=== PATIENT | female | born 1995 | race Caucasian/White ===

== ENCOUNTER 2019-05-13 23:08 | Inpatient (IN) | payer BC ==
--- NOTE | 2019-05-13 23:36 | ED ---
Psychiatric Complaint - HPI Summary HPI Summary: Patient is a 23 y/o F presenting to [facility] with cc of SI with overdose and self- inflicted lacerations today. She reports feeling suicidal today, as she has been self-inflicting lacerations to the L anterior thigh and left side of the face using an ex-acto knife. She also has taken a variety of medications tonight , including Benadryl 50mg, Trazodone 5mg, and Noctamid 6mg. She had four pills of Tylenol this morning but none tonight. She had four glasses of wine with dinner. She has a history of opiate (heroin) use that she has been dealing with for the last 5 years, but she denies any IV drug use. History of anxiety and depression managed with medications. No previous admissions for psychiatric reasons. She does not have any other medical complaints at this time. No other PMHx. Nonsmoker, occasional alcohol use. Medications reviewed. Allergies noted. - History Of Current Complaint Hx Obtained From: Patient Onset/Duration: Still Present Timing: Constant Severity Initially: Mild Severity Currently: Moderate Character: Depressed Aggravating Factor(s): Recent Stress Alleviating Factor(s): Nothing Related History: Positive For: Prior Psychiatric Issues - anxiety, depression Has Suicidal: Reports: Thoughts, With A Plan, Demonstrates Gesture - took mx pills, self-inflicted cuts Ingestion History: Type/Name Of Drug - Benadryl 50mg, Trazodone 5mg, and Noctamid 6mg - Allergies/Home Medications Allergies/Adverse Reactions: Allergies Allergy/AdvReac Type Severity Reaction Status Date / Time No Known Allergies Allergy Verified 05/13/19 23:15 Home Medications: Home Medications Fluoxetine HCl [Prozac] 20 mg PO DAILY 05/13/19 [History Confirmed 05/13/19] Trazodone HCl 50 mg PO QPM PRN 05/13/19 [History Confirmed 05/13/19] clonazePAM [Clonazepam] 0.5 mg PO DAILY PRN 05/13/19 [History Confirmed 05/13/19 ] PMH/Surg Hx/FS Hx/Imm Hx Endocrine/Hematology History: Denies: Hx Diabetes Cardiovascular History: Denies: Hx Hypertension, Hx Pacemaker/ICD History: Denies: Hx Renal Disease Sensory History: Denies: Hx Hearing Aid Psychiatric History: Reports: Hx Anxiety, Hx Depression Denies: Hx Panic Disorder - Surgical History Surgical History: None Surgery Procedure, Year, and Place: none Infectious Disease History: No Infectious Disease History: Denies: Traveled Outside the [place] in Last 30 Days - Family History Known Family History: Negative: Renal Disease - Social History Alcohol Use: None Hx Substance Use: Yes Substance Use Type: Reports: Heroin, Other - opioids Hx Tobacco Use: No Smoking Status (MU): Never Smoked Tobacco Review of Systems Positive: Other - self-inflicted lacerations to left side of face and left thigh All Other Systems Reviewed And Are Negative: Yes Physical Exam - Summary Physical Exam Summary: Constitutional: Well-developed, Well-nourished, Alert. (-) Distressed Skin: Self-inflicted abrasions on the L face and L thigh; Warm, Dry HENT: Normocephalic; Atraumatic Eyes: Conjunctiva normal Neck: Musculoskeletal ROM normal neck. (-) JVD, (-) Stridor, (-) Nuchal rigidity Cardio: Rhythm regular, rate normal, Heart sounds normal; Intact distal pulses; Radial pulses are 2+ and symmetric. (-) Murmur Pulmonary/Chest wall: Effort normal. (-) Respiratory distress, (-) Wheezes, (-) Rales Abd: Soft, (-) tenderness, (-) Distension, (-) Guarding, (-) Rebound Musculoskeletal: (-) Edema Lymph: (-) Cervical adenopathy Neuro: Alert, Oriented x3 Psych: Tearful Triage Information Reviewed: Yes Vital Signs On Initial Exam: Initial Vitals Temp Pulse Resp BP Pulse Ox 100.2 F 83 16 139/96 98 05/13/19 23:10 05/13/19 23:10 05/13/19 23:10 05/13/19 23:10 05/13/19 23:10 Vital Signs Reviewed: Yes Procedures - Sedation Patient Received Moderate/Deep Sedation with Procedure: No Diagnostics - Vital Signs Vital Signs Temp Pulse Resp BP Pulse Ox 05/13/19 23:10 100.2 F 83 16 139/96 98 - Laboratory Result Diagrams: 05/13/19 23:31 05/13/19 23:31 Lab Statement: Any lab studies that have been ordered have been reviewed, and results considered in the medical decision making process. - EKG 2357 Cardiac Rate: NL - 66 BPM EKG Rhythm: Sinus Rhythm Summary of EKG Findings: An EKG at 2357 reveals normal sinus rhythm at 66 BPM, nml QTc, nml QRS. No STEMI. ED physician has reviewed and interpreted this EKG. Re-Evaluation - Re-Evaluation First Eval Re-Evaluation Time: 00:00 Comment: Patient medically clear for MHE. Second Eval Re-Evaluation Time: 03:30 Comment: Notified by patient's father that she took 20 tabs of Noctamid instead of one tab like she said earlier. D/w Posion Control regarding father's concern for ingestion. Patient arousable and cooperative. Third Eval Re-Evaluation Time: 06:30 Comment: pending patient arousal prior to MHE, she is sleepy at this time, per psychiatric team Course/Dx - Differential Dx/Clinical Impression Provider Diagnosis: Depression - Physician Notifications Discussed Care Of Patient With: Posion Control Instructed by Provider To: Other - D/w Poison Control secondary to father's concern for ingestion of more medication than she lead on initially Discharge ED - Sign-Out/Discharge Documenting (check all that apply): Sign-Out Patient Signing out patient TO: Mraii Miranda - Patient is a sign-out to Dr. Marii Miranda MD, at change of shift at 0700 on 05/14/19, pending MHE and disposition. - Discharge Plan Condition: Stable Referrals: Sussy Villagomez, CARRY IN WORKER [Nurse Practitioner] - - Attestation Statements Document Initiated by Scribe: Yes Documenting Scribe: Tejal Yen Provider For Whom Scribe is Documenting (Include Credential): Dr. Krissy Elliott MD Scribe Attestation: Tejal Peña, scribed for Dr. Krissy Elliott MD on 05/14/19 at 0627. Status of Scribe Document: Ready
[2019-05-13 23:41] LABS: ABS Eosinophils 0.2 10^3/ul (0-0.6); ABS Lymphocytes 1.6 10^3/ul (1.0-4.8); ABS Monocytes 0.7 10^3/ul (0-0.8); ABS Neutrophils 4.7 10^3/ul (1.5-7.7); Eosinophil % 2.2 %; Hematocrit 38 % (35-47); Lymphocyte % 22.1 %; Mean Corpuscular HGB Conc 34 g/dL (31-36); Mean Corpuscular Hemoglobin 30 pg (27-31); Mean Corpuscular Volume 86 fL (80-97); Mean Platelet Volume 7.1 fL (7.4-10.4); Platelet Count 237 10^3/uL (150-450); Red Blood Count 4.38 10^6 /uL (3.70-4.87); Red Cell Distribution Width 13 % (10-15); White Blood Count 7.1 10^3/uL (3.5-10.8)
[2019-05-13] MEDS ORDERED: Tetan/Diph/Pertus SYR(Tdap)* 0.5 ML SYR(BOOSTRIX) use SYR contains LATEX IM ONE (23:43)
[2019-05-14] LABS: ALT 18 U/L (7-52); AST 21 U/L (13-39); Albumin 4.8 g/dL (3.2-5.2); Albumin/Globulin Ratio 1.9 (1-3); Alkaline Phosphatase 42 U/L (34-104); Anion Gap 9 mmol/L (2-11); BUN/Creatinine Ratio 29.9 (8-20); Blood Urea Nitrogen 20 mg/dL (6-24); CO2 Carbon Dioxide 23 mmol/L (22-32); Calcium 9.5 mg/dL (8.6-10.3); Chloride 107 mmol/L (101-111); EGFR African American 134.4 (>60); EGFR Non-African American 111.1 (>60); Globulin 2.5 g/dL (2-4); Glucose 90 mg/dL (70-100); Potassium 3.8 mmol/L (3.5-5.0); Sodium 139 mmol/L (135-145); Total Protein 7.3 g/dL (6.4-8.9)
[2019-05-14 00:05] LABS: HCG Pregnancy < 0.60 mIU/mL
[2019-05-14 00:28] LABS: Acetaminophen < 15 mcg/mL; Alcohol < 10 mg/dL (<10); Salicylate < 2.50 mg/dL (<30)
[2019-05-14 02:37] LABS: Urine Appearance Clear; Urine Bilirubin Negative (Negative); Urine Blood 2+ (Negative); Urine Color Yellow; Urine Glucose Negative (Negative); Urine Ketones 1+ (Negative); Urine Nitrite Negative (Negative); Urine Protein Negative (Negative); Urine Specific Gravity 1.035 (1.010-1.030); Urine Urobilinogen Negative (Negative)
[2019-05-14 02:44] LABS: Urine Bacteria Absent (Absent); Urine Red Blood Cell 1+(3-5/hpf) (Absent); Urine Squamous Epithelial Cell Present (Absent); Urine White Blood Cell Trace(0-5/hpf) (Absent)
[2019-05-14 02:53] LABS: Urine Benzodiazepine Screen None Detected (None Detect); Urine Opiates Screen None Detected (None Detect)
--- NOTE | 2019-05-14 07:17 | ED ---
Progress - Progress Note Progress Note: Patient is a sign out at 07:00 on 05/14/[address] Krissy Elliott MD to Dr. Marii Miranda MD at shift change, pending mental health hold and disposition. At 07:32, timber management professor reports the patient is sleeping and pending collateral from her . At 11:52, timber management professor reports that the patients case was reviewed by Dr. Macario Quiroz who will voluntarily admit the patient to [facility] with a diagnosis of unspecified depressive disorder. Patient will be admitted to [facility] with a diagnosis of unspecified depressive disorder. Re-Evaluation - Re-Evaluation First Eval Re-Evaluation Time: 00:00 Change: Unchanged Comment: Patient medically clear for MHE. Second Eval Re-Evaluation Time: 03:30 Change: Unchanged Comment: Notified by patient's father that she took 20 tabs of Noctamid instead of one tab like she said earlier. D/w Posion Control regarding father's concern for ingestion. Patient arousable and cooperative. Third Eval Re-Evaluation Time: 06:30 Change: Unchanged Comment: pending patient arousal prior to MHE, she is sleepy at this time, per psychiatric team Fourth Eval Re-Evaluation Time: 07:32 Change: Unchanged Comment: At 07:32, timber management professor reports the patient is sleeping and pending collateral from her . Course/Dx - Diagnoses Provider Diagnoses: Depression - Provider Notifications Discussed Care Of Patient With: Macario Quiroz - At 11:52, timber management professor reports that the patients case was reviewed by Dr. Macario Quiroz who will voluntarily admit the patient to [facility] with a diagnosis of unspecified depressive disorder. Time Discussed With Above Provider: 11:52 Instructed by Provider To: Admit As Inpatient - D/w Poison Control secondary to father's concern for ingestion of more medication than she lead on initially Discharge ED - Sign-Out/Discharge Documenting (check all that apply): Patient Departure - Admit, Receiving Sign- Out Receiving patient FROM: Krissy Elliott - Patient is a sign out at 07:00 on 05/14/[address] Krissy Elliott MD to Dr. Marii Miranda MD at shift change, pending mental health hold and disposition. - Discharge Plan Condition: Stable [place] [place]: Sussy Villagomez SPANISH LITERATURE PROFESSOR [Nurse Practitioner] - - Billing Disposition and Condition Condition: STABLE [place] [facility] [place] Attestation Statements Document Initiated by Marianneiberen: Yes Documenting Scribe: Sussy Hamilton Provider For Whom Scribe is Documenting (Include Credential): Marii Miranda MD Scribe Attestation: Sussy Peña, scribed for Marii Miranda MD on 05/14/19 at 1558. Scribe Documentation Reviewed: Yes Provider Attestation: The documentation as recorded by the Sussy aguilar accurately reflects the service I personally performed and the decisions made by me, Marii Miranda MD Status of Scribe Document: Viewed
[2019-05-14] MEDS ORDERED: Al Hydrox/Mg Hydrox/Simet LIQ* 30 ML UDC PO PRN (11:22)
[2019-05-14] MEDS ORDERED: traZODone TAB* 50 MG TAB PO PRN (11:23)
[2019-05-14] MEDS: Acetaminophen TAB* 325 MG PO PRN (16:45)
[2019-05-14] MEDS: hydrOXYzine HCL TAB* 50 MG PO PRN (16:46)
[2019-05-14] MEDS: FLUoxetine CAP* 20 MG PO SCH (21:56)
[2019-05-15] MEDS: Acetaminophen TAB* 325 MG PO PRN (08:58)
[2019-05-15] MEDS: FLUoxetine CAP* 20 MG PO SCH (08:58)
[2019-05-15] MEDS: hydrOXYzine HCL TAB* 50 MG PO PRN (08:58)
--- NOTE | 2019-05-15 11:42 | PN ---
BSU: Group Therapy Note - Service Type Service Type: [id number] Group Psychotherapy - Cognitive Behavioral Group Therapy ( CBT):Patient attended CBT programming this morning and presented with flat affect that did not vary with discussion. Although responsive to direct prompts to respond to questions, patient did not engage in spontaneous conversation.
[2019-05-15] MEDS: Sulfamethox/Trimethoprim DS 800/160* TAB PO SCH ×2 (11:57→21:03)
[2019-05-15] MEDS ORDERED: Loperamide CAP* 4 MG INITIAL PRN DOSE PO (13:50)
[2019-05-15] MEDS ORDERED: CLONIDINE PO ONE (14:00)
[2019-05-15] MEDS: cloNIDine TAB* 0.1 MG Q4H DAYS 1 TO 4 PO SCH ×4 (14:06→18:36)
[2019-05-15] MEDS: Loperamide CAP* 2 MG AFTER EACH LOOSE STOOL MDD 16 MG PO PRN (14:12)
[2019-05-15] MEDS: Carisoprodol TAB* 350 MG Q6H PRN PO ×2 (14:13→20:45)
[2019-05-15] MEDS: Ibuprofen TAB* 400 MG Q6H PRN PO ×2 (14:13→20:45)
[2019-05-15] MEDS: Nicotine* 4MG (FRUIT FLAVOR) GUM PO PRN (14:15)
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
[2019-05-15] MEDS: cloNIDine TAB* 0.1 MG ADDITIONAL PRN DOSES DAYS 1-4 PO (19:09)
[2019-05-15] MEDS: Nicotine Patch Removal NOTE FOLLOW UP SCH (23:00)
[2019-05-16] MEDS: cloNIDine TAB* 0.1 MG Q4H DAYS 1 TO 4 PO SCH ×6 (02:00→22:54)
[2019-05-16] MEDS: Carisoprodol TAB* 350 MG Q6H PRN PO ×2 (07:43→16:27)
[2019-05-16] MEDS: Nicotine PATCH 21 MG/24 HR* PATCH TRANSDERM SCH (08:48)
[2019-05-16] MEDS: FLUoxetine CAP* 20 MG PO SCH (08:48)
[2019-05-16] MEDS: Sulfamethox/Trimethoprim DS 800/160* TAB PO SCH ×2 (08:48→20:27)
--- NOTE | 2019-05-16 16:31 | PN ---
Subjective - Subjective Date of Service: 05/16/19 Service Type: [id number] Hosp care 25 min moderate complexity Subjective: "Nelsy" asserts that she is feeling well. She stated that yesterday and then again this morning, she felt ill, but she has felt well for the rest of the day. She thinks that having been free of opiates since either or Tuesday has made her suffering with the clonidine reduced as she spent the most uncomfortable parts of her days without help from medication. The superficial lacerations on her face are healing well. Nelsy stilljaneth appears self conscious about the way she looks. She would like to go back to school before Tuesday so she doesn't miss any classes. She declines to go to inpatient substance-use treatment now as it will interfere with her schooling. She asserts that without school, stress is too intense for her to function due to the lack of structure. She states she'd be more willing to go inpatient this summer and her father, who is interested in seeing her go to rehab, would like her to go to rehab in [facility]. She appears anxious and states she appears that way because she is anxious to go home and to get to outpatient rehab. Objective - General Observations Appearance: Neat, Well Groomed Appears Stated Age: Yes Stature: Thin Posture: WNL Eye Contact: Intermittent Behavior/Activity: WNL - Interaction Observations Attitude Towards Examiner: Cooperative, Anxious, Defensive Stated Mood: Dysphoric Affect: Blunted Speech Pattern/Tone: Clear, Appropriate, Quiet Volume Thought Process: Coherent Perception: WNL Thought Content: Preoccupation/Ruminations, Self-Deprecatory Hallucination Type: None Delusion Type: None - Cognitive Function Orientation: A&O x 4 Level of Consciousness: Awake, Alert, Appropriate Cognition: Impaired Cognition Estimated Intelligence: Normal Judgment Within Normal Limits: No Ability to Make Reasonable Decisions: Mildly Impaired - Medication Compliance Cooperative with Inpatient Medication Regimen: Yes - Group Participation Participates in Group Activities: Yes Assessment - Assessment Merits Inpatient Hospitalization: For Immediate Safety Inpatient DSM-V Dx: F33.2 Clinical Impression: Nelsy is a 23 year old woman 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 Plan - Plan Treatment Plan: Name: BREANNA MARADIAGA Birthdate: 1995 [id number] Start naltrexone on Tuesday when she is 7 days free of opioids. Continue Prozac. Encourage going to inpatient rehab sooner rather than later. Continue backup plan to go to outpatient rehab and return to school. Continued Medication Management: Different Medication Medications: Current Medications Acetaminophen (Tylenol Tab*) 650 mg PO Q4H PRN PRN Reason: for pain; or Temp >101 F Last Admin: 05/15/19 08:58 Dose: 650 mg Al Hydrox/Mg Hydrox/Simethicone (Maalox Plus*) 30 ml PO Q4H PRN PRN Reason: INDIGESTION Carisoprodol (Soma Tab*) 350 mg PO Q6H PRN PRN Reason: MUSCLE CRAMPS/ACHING Stop: 05/21/19 23:59 Last Admin: 05/16/19 07:43 Dose: 350 mg Clonidine HCl (Catapres Tab*) 0.1 mg PO Q4HR FRNAKIE Stop: 05/18/19 23:59 Last Admin: 05/16/19 13:03 Dose: 0.1 mg Clonidine HCl (Catapres Tab*) 0 - 0.6 mg PO Q8HR FRANKIE Stop: 05/19/19 23:59 Clonidine HCl (Catapres Tab*) 0 - 0.3 mg PO Q8HR FRANKIE Stop: 05/20/19 23:59 Clonidine HCl (Catapres Tab*) 0 - 0.15 mg PO Q12HR FRANKIE; Protocol Stop: 05/21/19 23:59 Clonidine HCl (Catapres Tab*) 0.1 mg PO Q4H PRN PRN Reason: DETOX Stop: 05/18/19 23:59 Fluoxetine HCl (Prozac Cap*) 20 mg PO DAILY FRANKIE Last Admin: 05/16/19 08:48 Dose: 20 mg Hydroxyzine HCl (Atarax Tab*) 50 mg PO Q6H PRN PRN Reason: anxiety Last Admin: 05/15/19 08:58 Dose: 50 mg Ibuprofen (Motrin Tab*) 400 mg PO Q6H PRN PRN Reason: BONE/JOINT PAIN Stop: 05/21/19 23:59 Last Admin: 05/15/19 20:45 Dose: 400 mg Loperamide HCl (Imodium Cap*) 4 mg PO ONCE PRN PRN Reason: DIARRHEA Stop: 05/21/19 23:59 Loperamide HCl (Imodium Cap*) 2 mg PO .SEE BELOW PRN PRN Reason: DIARRHEA Stop: 05/21/19 23:59 Last Admin: 05/15/19 14:12 Dose: 2 mg Naltrexone HCl (Naltrexone Tab*) 50 mg PO DAILY [facility]; Protocol Nicotine (Nicotine Patch 21 Mg/24 Hr*) 1 patch TRANSDERM DAILY@0800 [facility] Last Admin: 05/16/19 08:48 Dose: 1 patch Nicotine Polacrilex (Nicotine Gum*) 4 mg PO Q2H PRN PRN Reason: CIGARETTE CRAVINGS Last Admin: 05/15/19 14:15 Dose: 4 mg Pharmacy Profile Note (Nicotine Patch Removal Note*) 1 note FOLLOW UP 2100 [facility] Last Admin: 05/15/19 23:00 Dose: Not Given Trazodone HCl (Desyrel Tab*) 50 mg PO QPM PRN PRN Reason: SLEEP Trimethoprim/Sulfamethoxazole (Bactrim Ds 800/160 Tab*) 1 tab PO BID [facility] Stop: 05/25/19 10:59 Last Admin: 05/16/19 08:48 Dose: 1 tab
--- NOTE | 2019-05-16 16:48 | PN ---
BSU: Group Therapy Note - Service Type Service Type: [id number] Group Psychotherapy - Medication Education Group: Patient attended group and presented with flat affect that did not vary with discussion. Although responsive to direct prompts to respond to questions, patient did not engage in spontaneous conversation.
[2019-05-16] MEDS: cloNIDine TAB* 0.1 MG ADDITIONAL PRN DOSES DAYS 1-4 PO (16:56)
[2019-05-16] MEDS: hydrOXYzine HCL TAB* 50 MG PO PRN (20:27)
[2019-05-16] MEDS: Ibuprofen TAB* 400 MG Q6H PRN PO (20:27)
[2019-05-16] MEDS: Nicotine Patch Removal NOTE FOLLOW UP SCH (20:35)
[2019-05-17] MEDS: cloNIDine TAB* 0.1 MG Q4H DAYS 1 TO 4 PO SCH ×6 (02:00→21:32)
[2019-05-17] MEDS: Ibuprofen TAB* 400 MG Q6H PRN PO (05:50)
[2019-05-17] MEDS: hydrOXYzine HCL TAB* 50 MG PO PRN ×2 (05:50→15:18)
[2019-05-17] MEDS: Carisoprodol TAB* 350 MG Q6H PRN PO ×2 (05:50→19:17)
[2019-05-17] MEDS: Nicotine PATCH 21 MG/24 HR* PATCH TRANSDERM SCH (08:27)
[2019-05-17] MEDS: Sulfamethox/Trimethoprim DS 800/160* TAB PO SCH ×2 (08:27→21:00)
[2019-05-17] MEDS: Nicotine* 4MG (FRUIT FLAVOR) GUM PO PRN (08:27)
[2019-05-17] MEDS: FLUoxetine CAP* 20 MG PO SCH (08:27)
--- NOTE | 2019-05-17 11:52 | PN ---
BSU: Group Therapy Note - Service Type Service Type: [id number] Group Psychotherapy - Cognitive Behavioral Group Therapy ( CBT):Patient was attentive and participatory in CBT programming this morning, and remained in good behavioral control. Patient expressed positive insights regarding relevant treatment interventions and goals.
[2019-05-17] MEDS: Loperamide CAP* 2 MG AFTER EACH LOOSE STOOL MDD 16 MG PO PRN (11:56)
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
[2019-05-17] MEDS: cloNIDine TAB* 0.1 MG ADDITIONAL PRN DOSES DAYS 1-4 PO (19:19)
[2019-05-17] MEDS: Nicotine Patch Removal NOTE FOLLOW UP SCH (21:00)
[2019-05-18] MEDS: cloNIDine TAB* 0.1 MG Q4H DAYS 1 TO 4 PO SCH ×3 (05:51→10:17)
[2019-05-18] MEDS ORDERED: Naltrexone TAB* 50 MG TAB PO SCH (09:00)
[2019-05-18] MEDS: Nicotine PATCH 21 MG/24 HR* PATCH TRANSDERM SCH (09:17)
[2019-05-18] MEDS: FLUoxetine CAP* 20 MG PO SCH (09:17)
[2019-05-18] MEDS: Sulfamethox/Trimethoprim DS 800/160* TAB PO SCH (09:17)
[2019-05-18 12:25] VITALS: BP 114/68
[2019-05-18] MEDS: Carisoprodol TAB* 350 MG Q6H PRN PO (12:45)
[2019-05-19] MEDS ORDERED: cloNIDine TAB* DOSING for DAY 5 PO SCH (06:00)
[2019-05-20] MEDS ORDERED: cloNIDine TAB* DOSING for DAY 6 PO SCH (06:00)
[2019-05-21] MEDS ORDERED: cloNIDine TAB* DOSING FOR DAY 7 PO SCH (09:00)
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
== END 2019-05-18 16:10 | disposition home or self-care (01) | DRG 751 ==
LOC: ED 23:08 → BSU 05-14 11:22
PROVIDERS: ADMIT Psychiatry & Neurology Psychiatry; ATTEND Psychiatry & Neurology Psychiatry
PROC: GZHZZZZ Group Psychotherapy (ICD-10-PCS; principal; 2019-05-13)
DX: F33.2 Major depressive disorder, recurrent severe without psychotic features (principal); F41.9 Anxiety disorder, unspecified; T43.211A Poisoning by selective serotonin and norepinephrine reuptake inhibitors, accidental (unintentional), initial encounter; T45.0X1A Poisoning by antiallergic and antiemetic drugs, accidental (unintentional), initial encounter; F11.90 Opioid use, unspecified, uncomplicated; S71.112A Laceration without foreign body, left thigh, initial encounter; S01.81XA Laceration without foreign body of other part of head, initial encounter; X78.9XXA Intentional self-harm by unspecified sharp object, initial encounter; Y92.009 Unspecified place in unspecified non-institutional (private) residence as the place of occurrence of the external cause; Y92.9 Unspecified place or not applicable; Z79.899 Other long term (current) drug therapy; Z28.21 Immunization not carried out because of patient refusal
CPT/HCPCS: 36415; 80053; 80061; 80307; 80320; 80329; 81003; 81015; 83036; 84443; 84702; 85025; 87077; 87086; 90471; 90715; 90853; 93005; 99222; 99231; 99232; 99238; 99284; A9270-GY; G0480